=== PATIENT | female | born 1985 | race Hispanic/Latino ===

== ENCOUNTER 2019-03-18 15:20 | Emergency (ER) | payer SELFPAY ==
[~2019-03-18] VITALS: Ht 152.4 cm; Wt 70.0 kg
[2019-03-18] MEDS ORDERED: HIV (16:10)
[2019-03-18] MEDS ORDERED: AMOX/K CLAV875 M1 PO (17:53)
[2019-03-18 18:14] VITALS: BP 113/73
== END 2019-03-18 18:14 | disposition home or self-care (01) | DRG 816 ==
LOC: ED 15:20
DX: R59.1 Generalized enlarged lymph nodes (principal); Z21 Asymptomatic human immunodeficiency virus [HIV] infection status